=== PATIENT | male | born 1990 | race American Indian/Alaskan Native ===

== ENCOUNTER 2017-09-26 04:59 | Emergency (ER) | payer OTHER ==
[2017-09-26 06:13] VITALS: BP 123/80
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
== END 2017-09-26 08:46 | disposition home or self-care (01) ==
LOC: ED 04:59
DX: S09.8XXA Other specified injuries of head, initial encounter (principal); R04.0 Epistaxis; F17.200 Nicotine dependence, unspecified, uncomplicated; V89.2XXA Person injured in unspecified motor-vehicle accident, traffic, initial encounter; Y93.89 Activity, other specified; Y92.89 Other specified places as the place of occurrence of the external cause; Y99.8 Other external cause status
CPT/HCPCS: 70450; 70486; 72125

== ENCOUNTER 2018-06-17 06:39 | Emergency (ER) | payer SELFPAY ==
[2018-06-17 07:16] VITALS: BP 132/90
--- NOTE | 2018-06-17 09:22 | Emergency Department Report ---
ED ENT HPI - General Chief complaint: Earache Stated complaint: EAR PAIN Time Seen by Provider: 06/17/18 09:16 Source: patient Mode of arrival: Ambulatory Limitations: No Limitations - History of Present Illness Initial comments: 28-year-old male with URI symptoms 1 week. Patient presents to ED with complaints of left ear pain, onset last night. Pt denies fever. States ear pain radiating to the jaw. Did not taken anything for pain prior to ED arrival. Patient reports he put a Q-tip in left ear to try and relieve the pain. MD complaint: ear pain -: Sudden Location: L ear Severity: severe Quality: aching Consistency: constant, other (now improved) Improves with: none Worsens with: none Context- Ear: recent illness Associated Symptoms: cough, sore throat, rhinorrhea. denies: fever - Related Data Previous Rx's Medication Instructions Recorded Last Taken Type Ibuprofen 800 mg PO TID PRN #15 tablet 09/26/17 Unknown Rx methOCARBAMOL [Robaxin TAB] 500 mg PO BID PRN 5 Days #10 tab 09/26/17 Unknown Rx Amoxicillin [Amoxicillin TAB] 875 mg PO BID 10 Days #20 tablet 06/17/18 Unknown Rx Naproxen [Naprosyn] 500 mg PO BID #20 tablet 06/17/18 Unknown Rx Allergies Allergy/AdvReac Type Severity Reaction Status Date / Time No Known Allergies Allergy Unverified 08/11/15 16:18 ED Dental HPI - General Chief complaint: Earache Stated complaint: EAR PAIN Time Seen by Provider: 06/17/18 09:16 Source: patient Mode of arrival: Ambulatory Limitations: No Limitations - Related Data Previous Rx's Medication Instructions Recorded Last Taken Type Ibuprofen 800 mg PO TID PRN #15 tablet 09/26/17 Unknown Rx methOCARBAMOL [Robaxin TAB] 500 mg PO BID PRN 5 Days #10 tab 09/26/17 Unknown Rx Amoxicillin [Amoxicillin TAB] 875 mg PO BID 10 Days #20 tablet 06/17/18 Unknown Rx Naproxen [Naprosyn] 500 mg PO BID #20 tablet 06/17/18 Unknown Rx Allergies Allergy/AdvReac Type Severity Reaction Status Date / Time No Known Allergies Allergy Unverified 08/11/15 16:18 ED Review of Systems ROS: Stated complaint: EAR PAIN Other details as noted in HPI Comment: All other systems reviewed and negative Constitutional: denies: chills, fever ENT: ear pain, congestion Respiratory: cough ED Past Medical Hx - Past Medical History Previous Medical History?: No Additional medical history: lactose intolerant - Surgical History Past Surgical History?: No - Social History Smoking Status: Current Every Day Smoker Substance Use Type: None - Medications Home Medications: Home Medications Medication Instructions Recorded Confirmed Last Taken Type Ibuprofen 800 mg PO TID PRN #15 tablet 09/26/17 Unknown Rx methOCARBAMOL [Robaxin TAB] 500 mg PO BID PRN 5 Days #10 tab 09/26/17 Unknown Rx Amoxicillin [Amoxicillin TAB] 875 mg PO BID 10 Days #20 tablet 06/17/18 Unknown Rx Naproxen [Naprosyn] 500 mg PO BID #20 tablet 06/17/18 Unknown Rx ED Physical Exam - General Limitations: No Limitations General appearance: alert, in no apparent distress - Head Head exam: Present: atraumatic, normocephalic - Eye Eye exam: Present: normal appearance - ENT ENT exam: Present: other (mild amt of blood in left ear, possible ruptured TM as I am unable to fully visualize the TM landmarks) - Neck Neck exam: Present: normal inspection, full ROM - Respiratory Respiratory exam: Present: normal lung sounds bilaterally. Absent: respiratory distress - Cardiovascular Cardiovascular Exam: Present: regular rate, normal rhythm - GI/Abdominal GI/Abdominal exam: Present: soft. Absent: tenderness - Extremities Exam Extremities exam: Present: normal inspection - Neurological Exam Neurological exam: Present: alert, oriented X3 - Psychiatric Psychiatric exam: Present: normal affect, normal mood - Skin Skin exam: Present: warm, dry, intact, normal color ED Course Vital Signs 06/17/18 07:14 Temperature 98.5 F Pulse Rate 87 Respiratory 16 Rate Blood Pressure 132/90 O2 Sat by Pulse 100 Oximetry ED Medical Decision Making - Medical Decision Making 28 yo M w/ possible left ruptured TM. Unknown if secondary to otitis media, as pt had URI sxs, or if mechanical, as pt reports using Qtip in ear also. Will prescribe antibiotics and analgesics. ENT follow-up given. - Differential Diagnosis otitis media, ruptured TM Critical care attestation.: If time is entered above; I have spent that time in minutes in the direct care of this critically ill patient, excluding procedure time. ED Disposition Clinical Impression: Eardrum rupture, left Disposition: DC-01 TO HOME OR SELFCARE Is pt being admited?: No Condition: Stable Instructions: Ruptured Eardrum (ED) Prescriptions: Amoxicillin [Amoxicillin TAB] 875 mg PO BID 10 Days #20 tablet Naproxen [Naprosyn] 500 mg PO BID #20 tablet Referrals: GLORIA KNOWLES MD [Referring] - 3-5 Days [facility] [Provider Group] - 3-5 Days Forms: Work/School Release Form(ED) Time of Disposition: 09:28
== END 2018-06-17 09:45 | disposition home or self-care (01) ==
LOC: ED 06:39
DX: H72.92 Unspecified perforation of tympanic membrane, left ear (principal); F17.200 Nicotine dependence, unspecified, uncomplicated
CPT/HCPCS: 99282